=== PATIENT | female | born 1935 | race Caucasian/White ===

== ENCOUNTER 2016-12-22 11:11 | Inpatient (IN) | payer MEDICARE, OTHER ==
[2016-12-22] MEDS ORDERED: IOPAMIDOL-300 100 ML VIAL IVP ONE (14:10)
[2016-12-22] MEDS ORDERED: ONDANSETRON 4 MG/2 ML VIAL IVP PRN ×2 (15:38→16:12)
[2016-12-22] MEDS ORDERED: ACETAMINOPHEN 325 MG TABLET PO PRN ×2 (15:38→16:12)
[2016-12-22] MEDS ORDERED: ONDANSETRON ODT 4 MG TABLET TL PRN ×2 (15:38→16:12)
[2016-12-22] MEDS ORDERED: HYDROcod/ACETAM 5/325 MG TABLET PO PRN ×2 (15:38→16:12)
[2016-12-22] MEDS ORDERED: SODIUM CHLORIDE FLUSH 0.9% 10 ML SYRINGE IVP PRN (15:38)
[2016-12-22] MEDS ORDERED: ALBUTEROL NEB 2.5 MG/3 ML INH PRN (15:41)
[2016-12-22] MEDS ORDERED: SODIUM CHLORIDE 0.9% 1,000 ML IV SCH (16:00)
[2016-12-22] MEDS: ALBUTEROL NEB 2.5 MG/3 ML INH PRN ×2 (16:15→20:00)
[2016-12-22] MEDS ORDERED: ALBUTEROL NEB 2.5 MG/3 ML INH ONE (16:19)
[2016-12-22] MEDS: SODIUM CHLORIDE 0.9% 1,000 ML IV SCH (16:45)
[2016-12-22] MEDS: cefTRIAXone 2 GM in SODIUM CHLORIDE 0.9% MINIBAG 100 ML IV SCH (16:45)
[2016-12-22] MEDS: AZITHROMYCIN INJ 500 MG in SODIUM CHLORIDE 0.9% 250 ML IV SCH (18:20)
[2016-12-22] MEDS: SODIUM CHLORIDE FLUSH 0.9% 10 ML SYRINGE IVP SCH (20:26)
[2016-12-22] MEDS ORDERED: SODIUM CHLORIDE FLUSH 0.9% 10 ML SYRINGE IVP SCH (22:00)
[2016-12-23] MEDS: SODIUM CHLORIDE 0.9% 1,000 ML IV SCH ×2 (04:48→14:15)
[2016-12-23] MEDS: SODIUM CHLORIDE FLUSH 0.9% 10 ML SYRINGE IVP SCH ×3 (05:46→20:57)
[2016-12-23] MEDS: ALBUTEROL NEB 2.5 MG/3 ML INH PRN ×4 (07:20→20:05)
[2016-12-23] MEDS ORDERED: ENOXAPARIN 40 MG/0.4 ML SYRINGE SUBQ SCH (09:00)
[2016-12-23] MEDS ORDERED: AZITHROMYCIN INJ 500 MG in SODIUM CHLORIDE 0.9% 250 ML IV SCH (09:00)
[2016-12-23] MEDS ORDERED: POLYETHYLENE GLYCOL 3350 17 GM PACKET PO SCH (09:00)
[2016-12-23] MEDS ORDERED: cefTRIAXone 2 GM in SODIUM CHLORIDE 0.9% MINIBAG 100 ML IV SCH (09:00)
[2016-12-23] MEDS: ENOXAPARIN 40 MG/0.4 ML SYRINGE SUBQ SCH (09:04)
[2016-12-23] MEDS: POLYETHYLENE GLYCOL 3350 17 GM PACKET PO SCH (09:04)
[2016-12-23] MEDS: ASPIRIN EC 81 MG TABLET PO SCH (13:12)
[2016-12-23] MEDS: ATORVASTATIN 40 MG TABLET PO SCH (13:12)
[2016-12-23] MEDS: cefTRIAXone 2 GM in SODIUM CHLORIDE 0.9% MINIBAG 100 ML IV SCH (17:23)
[2016-12-23] MEDS: AZITHROMYCIN INJ 500 MG in SODIUM CHLORIDE 0.9% 250 ML IV SCH (18:50)
[2016-12-23] MEDS: METOPROLOL SUCCINATE 25 MG TABLET PO SCH (20:58)
[2016-12-24] MEDS: ALBUTEROL NEB 2.5 MG/3 ML INH PRN ×3 (01:02→13:06)
[2016-12-24] MEDS: SODIUM CHLORIDE FLUSH 0.9% 10 ML SYRINGE IVP PRN ×3 (02:05→16:40)
[2016-12-24] MEDS: BENZOCAINE/MENTHOL LOZENGE MM PRN ×4 (04:33→22:13)
[2016-12-24] MEDS: SODIUM CHLORIDE FLUSH 0.9% 10 ML SYRINGE IVP SCH ×3 (05:36→22:14)
[2016-12-24] MEDS: ENOXAPARIN 40 MG/0.4 ML SYRINGE SUBQ SCH (08:14)
[2016-12-24] MEDS: ATORVASTATIN 40 MG TABLET PO SCH (08:14)
[2016-12-24] MEDS: METOPROLOL SUCCINATE 25 MG TABLET PO SCH ×2 (08:14→20:41)
[2016-12-24] MEDS: ASPIRIN EC 81 MG TABLET PO SCH (08:14)
[2016-12-24] MEDS: POLYETHYLENE GLYCOL 3350 17 GM PACKET PO SCH (08:15)
[2016-12-24] MEDS ORDERED: SODIUM CHLORIDE 0.9% 250 ML IV ONE (11:36)
[2016-12-24] MEDS: DOXYCYCLINE INJ 100 MG in SODIUM CHLORIDE 0.9% MINIBAG 100 ML IV SCH ×2 (11:40→22:14)
[2016-12-24] MEDS: cefTRIAXone 2 GM in SODIUM CHLORIDE 0.9% MINIBAG 100 ML IV SCH (16:40)
[2016-12-24] MEDS: AZITHROMYCIN INJ 500 MG in SODIUM CHLORIDE 0.9% 250 ML IV SCH (17:39)
[2016-12-25] MEDS: SODIUM CHLORIDE FLUSH 0.9% 10 ML SYRINGE IVP SCH (06:23)
[2016-12-25] MEDS: ALBUTEROL NEB 2.5 MG/3 ML INH PRN ×2 (07:37→12:14)
[2016-12-25] MEDS: DOXYCYCLINE INJ 100 MG in SODIUM CHLORIDE 0.9% MINIBAG 100 ML IV SCH (08:13)
[2016-12-25] MEDS: ENOXAPARIN 40 MG/0.4 ML SYRINGE SUBQ SCH (08:14)
[2016-12-25] MEDS: ASPIRIN EC 81 MG TABLET PO SCH (08:14)
[2016-12-25] MEDS: SODIUM CHLORIDE FLUSH 0.9% 10 ML SYRINGE IVP PRN (08:14)
[2016-12-25] MEDS: METOPROLOL SUCCINATE 25 MG TABLET PO SCH (08:14)
[2016-12-25] MEDS: ATORVASTATIN 40 MG TABLET PO SCH (08:14)
[2016-12-25] MEDS: POLYETHYLENE GLYCOL 3350 17 GM PACKET PO SCH (08:14)
== END 2016-12-25 12:53 | disposition home or self-care (01) | DRG 194 ==
DX: J15.9 Unspecified bacterial pneumonia (principal); J18.9 Pneumonia, unspecified organism; H66.003 Acute suppurative otitis media without spontaneous rupture of ear drum, bilateral; M80.88XA Other osteoporosis with current pathological fracture, vertebra(e), initial encounter for fracture; I10 Essential (primary) hypertension; I71.4 Abdominal aortic aneurysm, without rupture; E78.5 Hyperlipidemia, unspecified; R01.1 Cardiac murmur, unspecified; Z66 Do not resuscitate; Z79.82 Long term (current) use of aspirin

== ENCOUNTER 2017-10-07 08:00 | Outpatient (CLI) | payer MEDICARE, OTHER ==
[2017-10-07 13:46] LABS: ALBUMIN 4.4 g/dL (3.2-5.5); ALBUMIN/GLOBULIN RATIO 1.4 (1.0-2.2); ALKALINE PHOSPHATASE 136 IU/L (42-121); ALT ALANINE AMINOTRANSFERASE 27 IU/L (10-60); AST ASPARTATE AMINOTRANSFERASE 28 IU/L (10-42); BILIRUBIN,TOTAL 1.2 mg/dL (0.2-1.0); BUN - BLOOD UREA NITROGEN 11 mg/dL (6-20); CALCIUM 9.3 mg/dL (8.5-10.3); CARBON DIOXIDE - CO2 27 mmol/L (21-32); CHLORIDE 104 mmol/L (101-111); CHOL/HDL RATIO 3.9 (<4.4); CHOLESTEROL 220 mg/dL; CREATININE 0.7 mg/dL (0.4-1.0); GFR - MDRD 81 (>89); GLUCOSE 96 mg/dL (70-100); HDL CHOLESTEROL 56 mg/dL; LDL CHOLESTEROL,CALCULATED 129 mg/dL; LDL/HDL RATIO 2.3 (<4.4); SODIUM 136 mmol/L (135-145); TOTAL PROTEIN 7.5 g/dL (6.7-8.2); VLDL CHOLESTEROL 35 mg/dL
== END 2017-10-07 08:01 | disposition home or self-care (01) ==
LOC: LAB.N 08:00
PROVIDERS: ATTEND Internal Medicine Cardiovascular Disease
DX: E78.00 Pure hypercholesterolemia, unspecified (principal)
CPT/HCPCS: 36415; 80053; 80061; 83721

== ENCOUNTER 2017-10-21 20:05 | Emergency (ER) | payer MEDICARE, OTHER ==
[2017-10-21] MEDS ORDERED: niCARdipine 20 MG/200 ML 20 MG/200 ML BAG IV STA (20:24)
--- NOTE | 2017-10-21 20:40 | CT Preliminary Report ---
Exam: CT HEAD W/O STROKE PROTOCOL IMPRESSION: 1. Acute intralesional bleed of the dominant presumed metastatic lesion in the area of the right cent ral sulcus. Extensive perilesional edema would account for any left-sided motor or sensory symptoms. 2. Multiple smaller partially hemorrhagic and highly vascular cerebral lesions, all most likely due t o metastatic disease rather than multifocal cavernous angiomas. RADIA The above findings were discussed with Dr Negro by Dr. Shanelle Pozo at 20:33 hrs on 10/21/17. SITE ID: [id number]
[2017-10-21 20:43] LABS: BASOPHILS # (AUTO) 0.1 10^3/uL (0.0-0.1); BASOPHILS % (AUTO) 0.6 %; EOSINOPHILS # (AUTO) 0.4 10^3/uL (0.0-0.7); EOSINOPHILS % (AUTO) 4.3 %; HGB - HEMOGLOBIN 15.2 g/dL (12.0-16.0); LYMPHOCYTES # (AUTO) 3.2 10^3/uL (1.5-3.5); MEAN CORPUSCULAR HEMOGLOBIN 31.7 pg (27.0-31.0); MEAN CORPUSCULAR HGB CONC 34.1 g/dL (32.0-36.0); MEAN CORPUSCULAR VOLUME 92.7 fL (81.0-99.0); MEAN PLATELET VOLUME 8.2 fL (7.9-10.8); MONOCYTES # (AUTO) 0.6 10^3/uL (0.0-1.0); MONOCYTES % (AUTO) 7.6 %; NEUTROPHILS # (AUTO) 3.9 10^3/uL (1.5-6.6); NEUTROPHILS % (AUTO) 48.5 %; PLT - PLATELET COUNT 193 10^3/uL (130-450); RED BLOOD COUNT 4.79 10^6/uL (4.20-5.40); RED CELL DISTRIBUTION WIDTH 13.1 % (12.0-15.0); WHITE BLOOD COUNT 8.1 x10^3/uL (4.8-10.8)
--- NOTE | 2017-10-21 20:45 | CT Report ---
EXAM: CT HEAD EXAM DATE: 10/21/2017 08:26 PM. CLINICAL HISTORY: Left hand numbness for 30 minutes. COMPARISON: None. TECHNIQUE: Multiaxial CT images were obtained from the foramen magnum to the vertex. Reformats: Coron al. IV contrast: None. In accordance with CT protocol optimization, one or more of the following dose reduction techniques w ere utilized for this exam: automated exposure control, adjustment of mA and/or KV based on patient s ize, or use of iterative reconstructive technique. FINDINGS: Parenchyma: 2.1 cm bleed within the epicenter of a 2.5 cm highly vascular lesion centered at the hernandes -white junctions superior posterior right frontal lobe with a marked amount of adjacent perilesional edema involving the subcortical U fibers and associated mass effect. Several additional partially hemorrhagic and hypervascular lesions as follows: 9 mm left caudate nucl eus, 2.2 x 1.8 cm left frontal operculum, 5 x 6 mm hernandes-white junction superior mid left frontal lobe , with several extremely tiny additional lesion suspected given the subcortical edema superior left f rontal parietal lobes. Marked amount of baseline nonspecific supratentorial white matter disease as well. Extraaxial Spaces: Normal for age. No subdural or epidural collections identified. Ventricles: Normal in size and position. No intraventricular blood products nor midline shift. No inf erior transtentorial herniation. Sinuses and Orbits: Imaged paranasal sinuses, orbits, and mastoids show no significant abnormality. Bones: No evidence of fracture or calvarial defect. Other: None. IMPRESSION: 1. Acute intralesional bleed of the dominant presumed metastatic lesion in the area of the right cent ral sulcus. Extensive perilesional edema would account for any left-sided motor or sensory symptoms. 2. Multiple smaller partially hemorrhagic and highly vascular cerebral lesions, all most likely due t o metastatic disease rather than multifocal cavernous angiomas. RADIA The above findings were discussed with Dr Negro by Dr. Shanelle Pozo at 20:33 hrs on 10/21/17. Referring Provider Line: [phone] SITE ID: [id number]
[2017-10-21 20:50] LABS: ALBUMIN 4.8 g/dL (3.2-5.5); ALBUMIN/GLOBULIN RATIO 1.4 (1.0-2.2); BILIRUBIN,TOTAL 0.6 mg/dL (0.2-1.0); CREATININE 0.7 mg/dL (0.4-1.0); PT - PROTHROMBIN TIME 11.1 secs (9.9-12.6); TOTAL PROTEIN 8.2 g/dL (6.7-8.2)
[2017-10-21 21:44] LABS: BILIRUBIN,URINE NEGATIVE (NEGATIVE); GLUCOSE, URINE (UA) NEGATIVE (NEGATIVE); KETONES,URINE (UA) NEGATIVE (NEGATIVE); LEUKOCYTE ESTERASE, URINE NEGATIVE (NEGATIVE); NITRITE,URINE NEGATIVE (NEGATIVE); OCCULT BLOOD,URINE NEGATIVE (NEGATIVE); PROTEIN,URINE NEGATIVE (NEGATIVE); UROBILINOGEN,URINE 0.2 (NORMAL) E.U./dL (NORMAL)
[2017-10-21 21:47] LABS: CLARITY,URINE CLEAR (CLEAR)
[2017-10-21] MEDS ORDERED: DEXAMETHASONE 10 MG/ML VIAL IVP STA (21:56)
[2017-10-21] MEDS ORDERED: levETIRAcetam INJ 1,000 MG in SODIUM CHLORIDE 0.9% 100ML 100 ML IV STA (21:56)
--- NOTE | 2017-10-21 22:06 | ED Physician Documentation ---
PD HPI FOCAL NEURO - Stated complaint Stated Complaint: STROKE SYMPTOMS - Chief complaint Chief Complaint: Neuro - History obtained from History obtained from: Patient - History of Present Illness Timing - onset: How many minutes ago (30) Timing - details: Abrupt onset, Now resolved Weakness: Arm, Hand, Leg Numbness: Face, Left Associated symptoms: No: Headache, Nausea / vomiting Contributing factors: negative: Anticoagulated, Vascular dz Baseline status: positive: A&OX3, ambulatory, indep Similar symptoms before: No diagnosis Recently seen: Not recently seen - Additional information Additional information: Patient is an 82 year old female with no significant past medical history who is presenting to the emergency department for left sided facial numbness. Patient states that the symptoms started about 30 minutes ago and they are getting progressively better. Patient states that last week she had an episode where she could not move her arm but the symptoms resolved. Review of Systems Constitutional: denies: Fever, Chills Eyes: denies: Decreased vision, Photophobia Ears: reports: Reviewed and negative Nose: reports: Reviewed and negative Throat: reports: Reviewed and negative Cardiac: denies: Chest pain / pressure, Palpitations Respiratory: denies: Cough, Wheezing GI: denies: Nausea, Vomiting : reports: Reviewed and negative Skin: reports: Reviewed and negative Musculoskeletal: denies: Extremity pain Neurologic: reports: Focal weakness, Numbness. 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 - Present Medications Home Medications: Ambulatory Orders Medication Instructions Recorded Confirmed Aspirin [Aspirin EC] 81 mg PO DAILY 12/22/16 12/22/16 Atorvastatin Calcium 40 mg PO QPM 12/22/16 12/23/16 Metoprolol Succinate 25 mg PO BID 12/22/16 12/22/16 Doxycycline Hyclate 100 mg PO BID #14 capsule 12/25/16 Ipratropium/Albuterol [Duoneb] 3 ml INH Q6H #60 neb 12/25/16 Saccharomyces Boulardii [Florastor] 250 mg PO BID #20 capsule 12/25/16 cefUROXime axetil [Ceftin] 250 mg PO Q12H #12 tablet 12/25/16 - Allergies Allergies/Adverse Reactions: Allergies Allergy/AdvReac Type Severity Reaction Status Date / Time No Known Drug Allergies Allergy Verified 10/21/17 20:12 - Social History Does the pt smoke?: No Smoking Status: Never smoker ETOH Use: Wine Does the pt have substance abuse?: No - POLST Patient has POLST: No PD ED PE NORMAL - Vitals Vital signs reviewed: Yes - General General: Alert and oriented X 3, No acute distress - HEENT HEENT: Atraumatic, PERRL - Neck Neck: Supple, no meningeal sign - Respiratory Respiratory: No respiratory distress - Abdomen Abdomen: Soft, Non tender, Non distended - Derm Derm: Normal color, Warm and dry, No rash - Psych Psych: Normal mood PD ED PE EXPANDED - Neuro Neuro: Other (minimal decrease in sensation of left face, minimal drift of left arm) NIHSS - Time Time: 20:10 - Level of Consciousness Level of consciousness: (0) Alert, Keenly responsive LOC Questions: (0) Answers both Q's correct LOC Commands: (0) Performs both correctly - Gaze Best Gaze: (0) Normal - Visual Visual: (0) No loss - Facial Palsy Facial Palsy: (0) Normal, symmetrical movement - Motor Arms (both separate) Motor Arm (right): (0) No drift Motor Arm (left): (1) Drift - Motor Legs (both separate) Motor Leg (right): (0) No drift Motor Leg (left): (0) No drift - Limb Ataxia Limb Ataxia: (0) Absent - Sensory Sensory: (1) Wujx-[id number]-kpspetlz loss - Best Language Best Language: (0) No aphasia - Dysarthria Dysarthria: (0) Normal - Extinction and Inattention (formally neg Extinction and inattention: (0) No abnormality - Total Score/Results Total Score/Result: 2 Results - Vitals Vitals: Vital Signs - 24 hr 10/21/17 10/21/17 10/21/17 20:10 20:40 20:45 Temperature 36.3 C L Heart Rate 79 75 79 Respiratory 18 18 Rate Blood Pressure 185/113 H 154/104 H 142/94 H O2 Saturation 96 97 10/21/17 10/21/17 10/21/17 20:50 21:00 21:15 Temperature Heart Rate 82 80 82 Respiratory 18 Rate Blood Pressure 145/96 H 137/91 H 123/54 L O2 Saturation 100 10/21/17 10/21/17 10/21/17 21:33 21:47 22:00 Temperature Heart Rate 82 80 84 Respiratory 18 18 Rate Blood Pressure 144/98 H 133/84 H 130/98 H O2 Saturation 99 95 10/21/17 10/21/17 10/21/17 22:15 22:24 22:34 Temperature 36.5 C Heart Rate 79 83 Respiratory 18 18 Rate Blood Pressure 122/87 H 131/94 H O2 Saturation 98 97 Oxygen O2 Source Room air - EKG (time done) 2030 Rate: Rate (enter#) (77) Rhythm: NSR [place]: LAD Compare to prior EKG: Old EKG unavailable - Labs Labs: Laboratory Tests 10/21/17 10/21/17 10/21/17 20:32 20:32 20:32 WBC 8.1 RBC 4.79 Hgb 15.2 Hct 44.4 MCV 92.7 MCH 31.7 H MCHC 34.1 RDW 13.1 Plt Count 193 MPV 8.2 Neut # 3.9 Lymph # 3.2 [place] # 0.6 Eos # 0.4 Baso # 0.1 Absolute Nucleated RBC 0.01 Nucleated RBC % 0.1 PT 11.1 INR 1.0 APTT 25.4 Sodium 138 Potassium 4.5 Chloride 102 Carbon Dioxide 26 Anion Gap 10.0 BUN 13 Creatinine 0.7 Estimated GFR (MDRD) 81 L Glucose 90 Calcium 10.0 Total Bilirubin 0.6 AST 30 ALT 25 Alkaline Phosphatase 157 H Troponin I Total Protein 8.2 Albumin 4.8 Globulin 3.4 Albumin/Globulin Ratio 1.4 Lipase 30 TSH Urine Color Urine Clarity Urine pH Ur Specific [place] Urine Protein Urine Glucose (UA) Urine Ketones Urine Occult Blood Urine Nitrite Urine Bilirubin Urine Urobilinogen Ur Leukocyte Esterase Ur Microscopic Review Urine Culture Comments 10/21/17 10/21/17 10/21/17 20:32 20:32 21:37 WBC RBC Hgb Hct MCV MCH MCHC RDW Plt Count MPV Neut # Lymph # [place] # Eos # Baso # Absolute Nucleated RBC Nucleated RBC % PT INR APTT Sodium Potassium Chloride Carbon Dioxide Anion Gap BUN Creatinine Estimated GFR (MDRD) Glucose Calcium Total Bilirubin AST ALT Alkaline Phosphatase Troponin I < 0.04 Total Protein Albumin Globulin Albumin/Globulin Ratio Lipase TSH 5.39 Urine Color YELLOW Urine Clarity CLEAR Urine pH 7.0 Ur Specific [place] 1.010 Urine Protein NEGATIVE Urine Glucose (UA) NEGATIVE Urine Ketones NEGATIVE Urine Occult Blood NEGATIVE Urine Nitrite NEGATIVE Urine Bilirubin NEGATIVE Urine Urobilinogen 0.2 (NORMAL) Ur Leukocyte Esterase NEGATIVE Ur Microscopic Review NOT INDICATED Urine Culture Comments NOT INDICATED - Rads (name of study) CT head Radiology: Final report received, Discussed with rads (multiple lesions consistent with metastatic disease with active bleed in right hemisphere.), See rad report PD MEDICAL DECISION MAKING - ED course Complexity details: reviewed old records, reviewed results, re-evaluated patient , considered differential, d/w patient, d/w family, d/w it architecture consultant ED course: Patient was immediately seen and examined at bedside and sent for imaging. When patient returned iv access was gained and labs were drawn. ekg was performed and showed normal sinus. Patient's films were reviewed and discussed with radiologist. patient multiple mets one was hemorrhagic. Patient was started on a nicardipine drip. Tamazight was consulted. Case was discussed with dr. Harley neurology and then Dr. Mitchell, neurosurgery. He recommended systolic blood pressures close to 120, decadron 10mg IV, keppra 1000mg. Patient was started on those meds. Case was then discussed with Dr. Moreira who recommended transfer to ICU. Family was made aware of all the findings throughout. patient was transferred via airlift for further care. - Critical Care Time(min): 30 Time Includes: Direct patient care, Review records, Reassess patient, Document care, Coordinate care Data interpretation: Cardiac output Departure - Departure Disposition: 02 Transfer Acute Care Hosp Clinical Impression: Cerebrovascular accident (CVA), Hemorrhagic cerebrovascular accident (CVA) Condition: Critical
[2017-10-21 22:58] VITALS: BP 140/91
== END 2017-10-21 22:42 | disposition short-term general hospital (02) ==
LOC: ED 20:05
DX: I63.9 Cerebral infarction, unspecified (principal); R94.31 Abnormal electrocardiogram [ECG] [EKG]; I10 Essential (primary) hypertension; Z79.82 Long term (current) use of aspirin
CPT/HCPCS: 36415; 70450; 80053; 81001; 81003; 83690; 84443; 84484; 85025; 85610; 85730; 87086; 93005; 96365; 96367; 96375; 99285; 99291

== ENCOUNTER 2017-12-24 03:30 | Outpatient (CLI) | payer MEDICARE, OTHER | END 2017-12-24 03:31 | disposition critical access hospital (66) | LOC: EMS 03:30 | PROVIDERS: ATTEND Surgery | DX: R06.02 Shortness of breath (principal) | CPT/HCPCS: A0425; A0427 ==

== ENCOUNTER 2017-12-24 03:47 | Emergency (ER) | payer MEDICARE, OTHER ==
[2017-12-24] MEDS ORDERED: IOPAMIDOL-300 100 ML VIAL IVP ONE ×2 (03:48→04:48)
[2017-12-24 04:11] LABS: BASOPHILS # (AUTO) 0.1 10^3/uL (0.0-0.1); BASOPHILS % (AUTO) 1.1 %; EOSINOPHILS % (AUTO) 0.1 %; HGB - HEMOGLOBIN 11.7 g/dL (12.0-16.0); LYMPHOCYTES # (AUTO) 1.6 10^3/uL (1.5-3.5); LYMPHOCYTES % (AUTO) 17.4 %; MEAN CORPUSCULAR HGB CONC 34.2 g/dL (32.0-36.0); MEAN CORPUSCULAR VOLUME 93.5 fL (81.0-99.0); MONOCYTES % (AUTO) 11.6 %; NEUTROPHILS # (AUTO) 6.2 10^3/uL (1.5-6.6); NEUTROPHILS % (AUTO) 69.8 %; PLT - PLATELET COUNT 209 10^3/uL (130-450); RED BLOOD COUNT 3.65 10^6/uL (4.20-5.40); RED CELL DISTRIBUTION WIDTH 15.2 % (12.0-15.0); WHITE BLOOD COUNT 8.9 x10^3/uL (4.8-10.8)
--- NOTE | 2017-12-24 04:16 | ED Physician Documentation ---
PD HPI DYSPNEA - Stated complaint Stated Complaint: SOA - Chief complaint Chief Complaint: Resp - History obtained from History obtained from: Patient, EMS - History of Present Illness Timing - onset: How many weeks ago (2) Timing - details: Gradual onset, Still present Improved by: O2 Worsened by: Exertion, Laying flat Associated symptoms: No: Fever, Cough, Wheezing, Chest pain / discomfort Similar symptoms before: Has not had sx before Recently seen: Clinic - Additional information Additional information: Patient is an 82 year old female with a history of metastatic melanoma who is presenting to the emergency department for shortness of breath. According to patient and family over the last two weeks patient has become more short of breath. Patient last had a treatment that sounds like some type of immunomodulator about 1 week prior. patient denies any fever or cough. Family called ems tonight and when they arrived patient's O2 sat was 83% on room air. Review of Systems Constitutional: denies: Fever, Chills Eyes: reports: Reviewed and negative Ears: reports: Reviewed and negative Nose: reports: Reviewed and negative Throat: reports: Reviewed and negative Cardiac: denies: Pedal edema Respiratory: reports: Dyspnea. denies: Cough, Wheezing GI: reports: Nausea. 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 - Present Medications Home Medications: Ambulatory Orders Medication Instructions Recorded Confirmed Atorvastatin Calcium 40 mg PO QPM 12/22/16 12/23/16 Metoprolol Succinate 25 mg PO BID 12/22/16 12/22/16 Ascorbic Acid 500 mg PO DAILY 12/24/17 Cholecalciferol (Vitamin D3) 2,000 unit PO 12/24/17 12/24/17 [Vitamin D] Ubidecarenone [Coenzyme Q-10] 100 mg PO DAILY 12/24/17 - Allergies Allergies/Adverse Reactions: Allergies Allergy/AdvReac Type Severity Reaction Status Date / Time No Known Drug Allergies Allergy Verified 12/24/17 03:57 - Social History Does the pt smoke?: No Smoking Status: Never smoker Does the pt drink ETOH?: No Does the pt have substance abuse?: No - POLST Patient has POLST: No PD ED PE NORMAL - Vitals Vital signs reviewed: Yes (hypoxic and tachycardic) - General General: Alert and oriented X 3 - HEENT HEENT: Atraumatic - Neck Neck: No JVD - Abdomen Abdomen: Soft, Non distended - Derm Derm: Warm and dry - Extremities Extremities: No deformity - Neuro Neuro: Alert and oriented X 3 Eye Opening: Spontaneous Motor: Obeys Commands Verbal: Oriented GCS Score: 15 PD ED PE EXPANDED - Cardiac Cardiac: Tachy - Respiratory Respiratory: Clear to ausultation tashi. No: Distress, Accessory mm use - Derm Derm: Other (spot of melanoma on left landry) - Extremities Extremities: Pedal edema bilateral, Right calf TTP/cord, Left calf TTP/cord Results - Vitals Vitals: Vital Signs - 24 hr 12/24/17 12/24/17 12/24/17 03:55 03:58 04:50 Temperature 36.9 C Heart Rate 124 H 120 H 118 H Respiratory 20 26 H 24 Rate Blood Pressure 146/107 H 122/81 H 115/81 H O2 Saturation 88 L 95 91 L 12/24/17 12/24/17 12/24/17 05:21 05:45 06:05 Temperature 36.3 C L Heart Rate 115 H 112 H 109 H Respiratory 22 24 24 Rate Blood Pressure 109/77 117/87 H 108/69 O2 Saturation 94 97 96 Oxygen O2 Source Nasal cannula Oxygen Flow Rate 4 - EKG (time done) 0346 Rate: Rate (enter#) (120) Rhythm: Sinus tachycardia, SHUN Intervals: Normal NM Ischemia: Q waves Compare to prior EKG: Changed from prior EKG - Labs Labs: Laboratory Tests 12/24/17 12/24/17 12/24/17 04:00 04:00 04:00 WBC 8.9 RBC 3.65 L Hgb 11.7 L Hct 34.1 L MCV 93.5 MCH 32.0 H MCHC 34.2 RDW 15.2 H Plt Count 209 MPV 7.0 L Neut # 6.2 Lymph # 1.6 [place] # 1.0 Eos # 0.0 Baso # 0.1 Absolute Nucleated RBC 0.01 Nucleated RBC % 0.2 Sodium 135 Potassium 4.4 Chloride 102 Carbon Dioxide 25 Anion Gap 8.0 BUN 14 Creatinine 0.6 Estimated GFR (MDRD) 96 Glucose 123 H Calcium 8.7 Total Bilirubin 1.3 H AST 19 ALT 19 Alkaline Phosphatase 104 Troponin I 0.11 B-Natriuretic Peptide Total Protein 6.0 L Albumin 2.8 L Globulin 3.2 Albumin/Globulin Ratio 0.9 L Lipase 25 12/24/17 04:00 WBC RBC Hgb Hct MCV MCH MCHC RDW Plt Count MPV Neut # Lymph # [place] # Eos # Baso # Absolute Nucleated RBC Nucleated RBC % Sodium Potassium Chloride Carbon Dioxide Anion Gap BUN Creatinine Estimated GFR (MDRD) Glucose Calcium Total Bilirubin AST ALT Alkaline Phosphatase Troponin I B-Natriuretic Peptide 284 H Total Protein Albumin Globulin Albumin/Globulin Ratio Lipase - Rads (name of study) ct angio Radiology: Final report received, Discussed with rads (saddle PE with extensive clot burden, and right heart strain) PD MEDICAL DECISION MAKING - ED course Complexity details: reviewed old records, reviewed results, re-evaluated patient , considered differential, d/w patient, d/w family, d/w mental hygiene consultant ED course: Patient was seen and examined at bedside. ekg was performed and showed sinus tachycardia and right atrial enlargement. IV access was gained and labs were drawn. Patient was placed on supplemental oxygen. Patient was started on fluids. When patient's labs came back she was sent for imaging. When patient returned the results were reviewed and discussed with the radiologist. patient had a large saddle PE and extensive clot burden and right heart strain. Family was made aware of the findings and stated that they still wanted everything done. Heparin was held thought due to patient's recent hemorrhagic stroke. [facility] transfer center was contacted and the case was discussed with Dr. Sheppard who accepted the patient. he also stated should probably hold off on Heparin for now. Arrangements were made for transfer and patient was transferred in critical condition. Departure - Departure Disposition: 02 Transfer Acute Care Hosp Clinical Impression: Saddle embolism of pulmonary artery Condition: Critical
[2017-12-24 04:20] LABS: ALBUMIN 2.8 g/dL (3.2-5.5); ALBUMIN/GLOBULIN RATIO 0.9 (1.0-2.2); BILIRUBIN,TOTAL 1.3 mg/dL (0.2-1.0); CALCIUM 8.7 mg/dL (8.5-10.3); CREATININE 0.6 mg/dL (0.4-1.0)
[2017-12-24] MEDS ORDERED: SODIUM CHLORIDE 0.9% 1,000 ML IV ONE (04:24)
[2017-12-24] MEDS ORDERED: IOPAMIDOL-300 100 ML VIAL ONE (04:34)
--- NOTE | 2017-12-24 05:13 | CT Preliminary Report ---
Exam: CT CHEST ANGIO (PE) IMPRESSION: 1. Large saddle pulmonary embolism with heavy clot burden and CT evidence of right heart strain. 2. Bilateral mild airspace opacities may reflect edema but concomitant pneumonia not excluded in the proper clinical setting. 3. Findings consistent with metastatic disease in the liver, retroperitoneum, retrocrural region, and left breast. 4. Incompletely imaged more than 4 cm infrarenal abdominal aortic aneurysm. RADIA The above findings were discussed with Marky by Dr. Alex Gentile at 05:11 hrs on 12/24/17. SITE ID: [id number]
--- NOTE | 2017-12-24 05:27 | CT Report ---
EXAM: CT ANGIOGRAM CHEST EXAM DATE: 12/24/2017 04:49 AM. CLINICAL HISTORY: Hypoxic, tachycardic, history of metastatic melanoma. COMPARISON: 12/22/2016. TECHNIQUE: Routine helical imaging was performed through the chest in the pulmonary arterial phase. I V Contrast: Yes. Reconstructions: Coronal 3D MIP reconstructions.Sagittal and coronal. In accordance with CT protocol optimization, one or more of the following dose reduction techniques w ere utilized for this exam: automated exposure control, adjustment of mA and/or KV based on patient s ize, or use of iterative reconstructive technique. FINDINGS: Pulmonary Arteries: Technically adequate for evaluation through the segmental arteries. Large saddle embolism with heavy clot burden extending bilaterally. Lungs/Pleura: Multifocal ground-glass opacities bilaterally, most confluent at the left apex. Trace l eft effusion. Mediastinum: No acute aortic syndrome. Evidence of right heart strain with dilated right ventricle. Numerous small mediastinale lymph nodes are indeterminate. Upper Abdomen: Solid-appearing right liver nodule image 129 measuring 31 x 25 mm. Additional 14 x 16 mm nodule on image 100 at the dome. Other probable smaller hepatic metastases present. Incompletely i scout abdominal aortic aneurysm up to 42 x 40 mm on image 179. Other: Inferolateral left breast nodule on image 94 measuring 22 x 10 mm. Retrocrural lymph node on i mage 118 measures 12 mm in short axis. Retroperitoneal adenopathy with largest node measuring 21 x 16 mm on image 161. Old T12 compression deformity. IMPRESSION: 1. Large saddle pulmonary embolism with heavy clot burden and CT evidence of right heart strain. 2. Bilateral mild airspace opacities may reflect edema but concomitant pneumonia not excluded in the proper clinical setting. 3. Findings consistent with metastatic disease in the liver, retroperitoneum, retrocrural region, and left breast. 4. Incompletely imaged more than 4 cm infrarenal abdominal aortic aneurysm. RADIA The above findings were discussed with Marky by Dr. Alex Gentile at 05:11 hrs on 12/24/17. Referring Provider Line: [phone] SITE ID: [id number]
[2017-12-24 07:07] VITALS: BP 111/79
== END 2017-12-24 07:42 | disposition short-term general hospital (02) ==
LOC: ED 03:47
DX: I26.92 Saddle embolus of pulmonary artery without acute cor pulmonale (principal); I51.7 Cardiomegaly; R09.02 Hypoxemia; R00.0 Tachycardia, unspecified; C43.72 Malignant melanoma of left lower limb, including hip; C79.31 Secondary malignant neoplasm of brain; C77.9 Secondary and unspecified malignant neoplasm of lymph node, unspecified; C78.7 Secondary malignant neoplasm of liver and intrahepatic bile duct; Z86.73 Personal history of transient ischemic attack (TIA), and cerebral infarction without residual deficits; I10 Essential (primary) hypertension; E03.9 Hypothyroidism, unspecified
CPT/HCPCS: 36415; 71275; 80053; 83690; 83880; 84484; 85025; 93005; 96360; 99285; Q9967; 99281